=== PATIENT | female | born 1990 | race Caucasian/White ===

== ENCOUNTER 2020-03-23 18:20 | Inpatient (IN) ==
[2020-03-23] MEDS ORDERED: NS 0.9% 1000 ml BAG 2,000 ML IV ONE ×2 (18:29→20:15)
[2020-03-23 18:39] LABS: Hematocrit 43 % (35-47); Mean Corpuscular HGB Conc 32 g/dL (31-36); Mean Corpuscular Hemoglobin 31 pg (27-31); Mean Corpuscular Volume 95 fL (80-97); Mean Platelet Volume 9.2 fL (7.4-10.4); Platelet Count 418 10^3/uL (150-450); Red Blood Count 4.55 10^6 /uL (3.70-4.87); Red Cell Distribution Width 14 % (10-15); White Blood Count 30.6 10^3/uL (3.5-10.8)
[2020-03-23 19:06] LABS: ALT 23 U/L (7-52); Albumin 4.6 g/dL (3.2-5.2); Albumin/Globulin Ratio 1.3 (1-3); Alkaline Phosphatase 105 U/L (34-104); BUN/Creatinine Ratio 16.7 (8-20); Blood Urea Nitrogen 17 mg/dL (6-24); C Reactive Protein 2.55 mg/L (<8.01); Calcium 8.1 mg/dL (8.6-10.3); Chloride 99 mmol/L (101-111); EGFR African American 77.5 (>60); EGFR Non-African American 64.1 (>60); Globulin 3.6 g/dL (2-4); Sodium 125 mmol/L (135-145); Total Protein 8.2 g/dL (6.4-8.9)
[2020-03-23 19:08] LABS: CO2 Carbon Dioxide < 7 mmol/L (22-32); Glucose 596 mg/dL (70-100)
[2020-03-23 19:17] LABS: ABS Basophils 0.2 10^3/ul (0-0.2); ABS Lymphocytes 1.5 10^3/ul (1.0-4.8); ABS Neutrophils 26.9 10^3/ul (1.5-7.7); Lymphocyte % 4.8 %
[2020-03-23] MEDS ORDERED: Insulin Infusion 100unit/100mL 100 UNIT/100 ML BAG IV SCH (20:00)
[2020-03-23 20:24] LABS: Urine Appearance Clear; Urine Bilirubin Negative (Negative); Urine Blood 1+ (Negative); Urine Color Straw; Urine Glucose 3+(>=500 mg/dL) (Negative); Urine Ketones 2+ (Negative); Urine Nitrite Negative (Negative); Urine Protein 1+(30 mg/dL) (Negative); Urine Specific Gravity 1.017 (1.010-1.030); Urine Urobilinogen Negative (Negative)
[2020-03-23] MEDS ORDERED: Ondansetron 4 mg VIAL 2 MG/ML 2 ml VIAL IV PRN (20:24)
[2020-03-23 20:28] LABS: Urine Bacteria Absent (Absent); Urine Red Blood Cell Trace(0-2/hpf) (Absent); Urine Squamous Epithelial Cell Present (Absent); Urine White Blood Cell Absent (Absent)
[2020-03-23 20:28] LABS: Phosphorus 5.3 mg/dL (2.5-5.0)
[2020-03-23 20:50] LABS: LDH 257 U/L (140-271)
[2020-03-23 20:55] LABS: Magnesium 2.4 mg/dL (1.9-2.7); Potassium Redraw 4.9 mmol/L (3.5-5.0)
[2020-03-23] MEDS: Insulin Infusion 100unit/100mL 100 UNIT/100 ML BAG IV SCH (21:00)
[2020-03-23 21:10] LABS: Ferritin 58.7 ng/mL (11-307)
[2020-03-23] MEDS ORDERED: NS 0.9% 1000 ml BAG 1,000 ML IV SCH (21:45)
[2020-03-23 21:51] LABS: INR 2.61 (0.82-1.09)
[2020-03-23 21:59] LABS: Chloride 107 mmol/L (101-111); Potassium 4.9 mmol/L (3.5-5.0); Sodium 132 mmol/L (135-145)
[2020-03-23] MEDS ORDERED: D5NS 0.9% 1000 ml BAG 1,000 ML IV SCH (22:00)
[2020-03-23 22:04] LABS: BUN/Creatinine Ratio 16.3 (8-20); Blood Urea Nitrogen 15 mg/dL (6-24); CO2 Carbon Dioxide < 7 mmol/L (22-32); EGFR African American 87.3 (>60); EGFR Non-African American 72.2 (>60); Glucose 494 mg/dL (70-100)
[2020-03-23 22:30] LABS: Magnesium 2.3 mg/dL (1.9-2.7); Sodium 134 mmol/L (135-145)
[2020-03-23 22:36] LABS: BUN/Creatinine Ratio 14.4 (8-20); Blood Urea Nitrogen 13 mg/dL (6-24); EGFR African American 89.6 (>60); Glucose 413 mg/dL (70-100); Potassium 4.3 mmol/L (3.5-5.0)
[2020-03-23 22:37] LABS: CO2 Carbon Dioxide < 7 mmol/L (22-32); Calcium 6.3 mg/dL (8.6-10.3); Chloride 114 mmol/L (101-111)
[2020-03-24 01:30] LABS: Calcium 6.5 mg/dL (8.6-10.3); Magnesium 2.3 mg/dL (1.9-2.7); Potassium 3.9 mmol/L (3.5-5.0); Sodium 138 mmol/L (135-145)
[2020-03-24 01:35] LABS: BUN/Creatinine Ratio 13.1 (8-20); Blood Urea Nitrogen 11 mg/dL (6-24); EGFR Non-African American 80.2 (>60); Glucose 251 mg/dL (70-100)
[2020-03-24 01:37] LABS: Activated Partial Thrombo Time 24.8 seconds (26.0-38.0); Fibrinogen 267.5 mg/dL (110.8-404.3)
[2020-03-24 01:38] LABS: CO2 Carbon Dioxide < 7 mmol/L (22-32)
[2020-03-24] MEDS ORDERED: CALCIUM GLUCONATE 1GM/50ML NS 1 GM/50 ML BAG IV ONE (01:45)
[2020-03-24] MEDS ORDERED: KCL 20 MEQ/100 ML IVPREMIX 20 MEQ/100 ML BAG IV ONE (01:45)
[2020-03-24 01:53] LABS: Chloride 119 mmol/L (101-111)
[2020-03-24 05:11] LABS: ABS Basophils 0.1 10^3/ul (0-0.2); ABS Lymphocytes 2.2 10^3/ul (1.0-4.8); ABS Monocytes 1.2 10^3/ul (0-0.8); ABS Neutrophils 19.5 10^3/ul (1.5-7.7); Hematocrit 38 % (35-47); Hemoglobin 12.5 g/dL (12.0-16.0); Lymphocyte % 9.6 %; Mean Corpuscular HGB Conc 33 g/dL (31-36); Mean Corpuscular Hemoglobin 30 pg (27-31); Mean Corpuscular Volume 90 fL (80-97); Mean Platelet Volume 8.6 fL (7.4-10.4); Nucleated Red Blood Cells % 0.1; Platelet Count 265 10^3/uL (150-450); Red Blood Count 4.23 10^6 /uL (3.70-4.87); Red Cell Distribution Width 13 % (10-15); White Blood Count 22.9 10^3/uL (3.5-10.8)
[2020-03-24 05:26] LABS: BUN/Creatinine Ratio 11.2 (8-20); Calcium 7.1 mg/dL (8.6-10.3); EGFR African American 90.7 (>60); Magnesium 2.1 mg/dL (1.9-2.7); Potassium 3.4 mmol/L (3.5-5.0)
[2020-03-24] MEDS: KCL 20 MEQ/100 ML IVPREMIX 20 MEQ/100 ML BAG IV SCH ×2 (06:01→08:42)
[2020-03-24] MEDS: D5LR 20 MEQ KCL 1000 ml BAG 1,000 ML IV SCH ×2 (06:01→13:26)
[2020-03-24] MEDS: Insulin Infusion 100unit/100mL 100 UNIT/100 ML BAG IV SCH (06:04)
[2020-03-24] MEDS ORDERED: Phytonadione Oral Solution 5 MG/25 ML UDC PO ONE (09:00)
[2020-03-24 10:06] LABS: BUN/Creatinine Ratio 13.9 (8-20); Calcium 7.1 mg/dL (8.6-10.3); EGFR African American 104.1 (>60); Potassium 3.4 mmol/L (3.5-5.0)
[2020-03-24 12:53] LABS: Hepatitis B Surface Antigen Nonreactive (Nonreactive)
[2020-03-24 12:58] LABS: Hepatitis A Ab IgM Negative (Negative)
[2020-03-24 12:59] LABS: Hepatitis B Core IgM Nonreactive (Nonreactive)
[2020-03-24 13:11] LABS: Hepatitis C Antibody Negative (Negative)
[2020-03-24 13:57] LABS: BUN/Creatinine Ratio 13.8 (8-20); Calcium 7.7 mg/dL (8.6-10.3); EGFR African American 102.6 (>60); EGFR Non-African American 84.8 (>60); Potassium 3.3 mmol/L (3.5-5.0)
[2020-03-24] MEDS ORDERED: Potassium Chlor 20 meq TAB.ER PO ONE (14:30)
[2020-03-24] MEDS ORDERED: [UNRECOGNIZED DRUG - OTHER] IVPB SCH (15:30)
[2020-03-24] MEDS ORDERED: SODIUM BICARB IVPB SCH ×2 (15:30→20:30)
[2020-03-24] MEDS ORDERED: POTASSIUM CHLORIDE IVPB SCH ×2 (15:30→20:30)
[2020-03-24 17:34] LABS: BUN/Creatinine Ratio 14.7 (8-20); Calcium 7.6 mg/dL (8.6-10.3); EGFR African American 110.5 (>60); EGFR Non-African American 91.4 (>60); Potassium 3.8 mmol/L (3.5-5.0)
[2020-03-24] MEDS: Insulin GLARGINE 100 un/ml 10 ml VIAL SUBCUT SCH (19:20)
[2020-03-24] MEDS ORDERED: [UNRECOGNIZED DRUG - OTHER] IVPB SCH (20:30)
[2020-03-24 21:18] LABS: BUN/Creatinine Ratio 14.1 (8-20); Calcium 7.4 mg/dL (8.6-10.3); EGFR African American 105.7 (>60); EGFR Non-African American 87.3 (>60); Potassium 4.1 mmol/L (3.5-5.0)
[2020-03-24] MEDS: POTASSIUM CHLORIDE IVPB SCH (22:17)
[2020-03-24] MEDS: [UNRECOGNIZED DRUG - OTHER] IVPB SCH (22:17)
[2020-03-24] MEDS: SODIUM BICARB IVPB SCH (22:17)
[2020-03-25 04:49] LABS: INR 1.04 (0.82-1.09)
[2020-03-25 05:06] LABS: ALT 13 U/L (7-52); AST 12 U/L (13-39); Albumin 3.1 g/dL (3.2-5.2); Albumin/Globulin Ratio 1.2 (1-3); Alkaline Phosphatase 61 U/L (34-104); BUN/Creatinine Ratio 12.7 (8-20); Blood Urea Nitrogen 9 mg/dL (6-24); CO2 Carbon Dioxide 17 mmol/L (22-32); Calcium 7.8 mg/dL (8.6-10.3); EGFR African American 117.8 (>60); EGFR Non-African American 97.3 (>60); Globulin 2.5 g/dL (2-4); Glucose 145 mg/dL (70-100); Potassium 3.1 mmol/L (3.5-5.0); Sodium 138 mmol/L (135-145); Total Protein 5.6 g/dL (6.4-8.9)
[2020-03-25 05:13] LABS: Anion Gap 5 mmol/L (2-11); Chloride 116 mmol/L (101-111)
[2020-03-25] MEDS ORDERED: Potassium Chloride LIQUID 20 MEQ/15 ML LIQUID PO ONE ×2 (05:15→07:30)
[2020-03-25 05:35] LABS: ABS Basophils 0.1 10^3/ul (0-0.2); ABS Lymphocytes 2.1 10^3/ul (1.0-4.8); ABS Monocytes 0.6 10^3/ul (0-0.8); ABS Neutrophils 6.1 10^3/ul (1.5-7.7); Eosinophil % 0.4 %; Hematocrit 32 % (35-47); Hemoglobin 11.3 g/dL (12.0-16.0); Lymphocyte % 23.7 %; Mean Corpuscular HGB Conc 35 g/dL (31-36); Mean Corpuscular Hemoglobin 31 pg (27-31); Mean Corpuscular Volume 87 fL (80-97); Nucleated Red Blood Cells % 0.1; Red Blood Count 3.69 10^6 /uL (3.70-4.87); Red Cell Distribution Width 13 % (10-15); White Blood Count 8.9 10^3/uL (3.5-10.8)
[2020-03-25 06:49] LABS: Platelet Count Platelets clumped. 10^3/uL (150-450)
[2020-03-25] MEDS: POTASSIUM CHLORIDE IVPB SCH (08:24)
[2020-03-25] MEDS: [UNRECOGNIZED DRUG - OTHER] IVPB SCH (08:24)
[2020-03-25] MEDS: SODIUM BICARB IVPB SCH (08:24)
[2020-03-25 08:25] LABS: Magnesium 1.9 mg/dL (1.9-2.7)
[2020-03-25 08:46] LABS: Phosphorus < 1.0 mg/dL (2.5-5.0)
[2020-03-25] MEDS ORDERED: Potassium Phosphate IV 15 MMOLE in NS 0.9% 250 ml 250 ML IVPB ONE ×2 (09:15→17:18)
[2020-03-25 17:13] LABS: Calcium 8.3 mg/dL (8.6-10.3); EGFR African American 107.2 (>60); EGFR Non-African American 88.6 (>60); Magnesium 1.8 mg/dL (1.9-2.7); Phosphorus 1.5 mg/dL (2.5-5.0); Potassium 3.9 mmol/L (3.5-5.0)
[2020-03-25] MEDS ORDERED: Magnesium Sulfate IV 1GM/100ML 1 GM/100 ML BAG IV ONE (17:19)
[2020-03-25] MEDS: Insulin GLARGINE 100 un/ml 10 ml VIAL SUBCUT SCH (18:23)
[2020-03-26] MEDS ORDERED: Potassium Chloride LIQUID 20 MEQ/15 ML LIQUID PO ONE (07:15)
[2020-03-26] MEDS ORDERED: Potassium Chlor 20 meq TAB.ER PO ONE (08:00)
[2020-03-26] MEDS ORDERED: Magnesium Sulfate IV 1GM/100ML 1 GM/100 ML BAG IV ONE (08:00)
[2020-03-26 08:20] LABS: INR 0.96 (0.82-1.09)
[2020-03-26 08:25] LABS: ABS Lymphocytes 2.8 10^3/ul (1.0-4.8); ABS Monocytes 0.4 10^3/ul (0-0.8); ABS Neutrophils 2.5 10^3/ul (1.5-7.7); Eosinophil % 0.4 %; Hematocrit 34 % (35-47); Hemoglobin 11.8 g/dL (12.0-16.0); Lymphocyte % 49.1 %; Mean Corpuscular HGB Conc 35 g/dL (31-36); Mean Corpuscular Hemoglobin 31 pg (27-31); Mean Corpuscular Volume 87 fL (80-97); Mean Platelet Volume 9.4 fL (7.4-10.4); Nucleated Red Blood Cells % 0.1; Platelet Count 225 10^3/uL (150-450); Red Blood Count 3.87 10^6 /uL (3.70-4.87); Red Cell Distribution Width 13 % (10-15); White Blood Count 5.7 10^3/uL (3.5-10.8)
[2020-03-26 09:54] LABS: BUN/Creatinine Ratio 12.9 (8-20); Calcium 8.1 mg/dL (8.6-10.3); EGFR African American 119.7 (>60); EGFR Non-African American 98.9 (>60); Magnesium 1.9 mg/dL (1.9-2.7); Phosphorus 3.2 mg/dL (2.5-5.0); Potassium 3.1 mmol/L (3.5-5.0)
[2020-03-26] MEDS ORDERED: Dextrose 50% Syringe 50 ml 25 GM/50 ML SYRINGE IV PUSH PRN (14:22)
[2020-03-26 14:45] LABS: BUN/Creatinine Ratio 13.4 (8-20); Calcium 8.1 mg/dL (8.6-10.3); EGFR African American 125.9 (>60); EGFR Non-African American 104.1 (>60); Potassium 4.3 mmol/L (3.5-5.0)
[2020-03-26] MEDS: Insulin GLARGINE 100 un/ml 10 ml VIAL SUBCUT SCH (17:38)
[2020-03-27 06:43] VITALS: BP 110/75
[2020-03-27 06:46] LABS: ABS Lymphocytes 2.4 10^3/ul (1.0-4.8); ABS Monocytes 0.3 10^3/ul (0-0.8); ABS Neutrophils 1.5 10^3/ul (1.5-7.7); Eosinophil % 1.1 %; Hematocrit 33 % (35-47); Hemoglobin 11.7 g/dL (12.0-16.0); Lymphocyte % 55.5 %; Mean Corpuscular HGB Conc 36 g/dL (31-36); Mean Corpuscular Hemoglobin 31 pg (27-31); Mean Corpuscular Volume 86 fL (80-97); Mean Platelet Volume 8.5 fL (7.4-10.4); Nucleated Red Blood Cells % 0.1; Platelet Count 222 10^3/uL (150-450); Red Blood Count 3.82 10^6 /uL (3.70-4.87); Red Cell Distribution Width 13 % (10-15); White Blood Count 4.3 10^3/uL (3.5-10.8)
[2020-03-27 07:02] LABS: INR 0.97 (0.82-1.09)
== END 2020-03-27 12:56 | disposition home or self-care (01) | DRG 420 ==
LOC: ICU 18:20 → ED 18:20 → ICU 20:33 → MED 03-26 14:40
PROVIDERS: ADMIT Internal Medicine; ATTEND Hospitalist

== ENCOUNTER 2021-04-18 20:23 | Inpatient (IN) ==
[2021-04-18 22:24] LABS: ABS Eosinophils 0.1 10^3/ul (0-0.6); ABS Lymphocytes 0.6 10^3/ul (1.0-4.8); ABS Monocytes 0.6 10^3/ul (0-0.8); ABS Neutrophils 12.8 10^3/ul (1.5-7.7); Eosinophil % 0.7 %; Hematocrit 33 % (35-47); Hemoglobin 11.1 g/dL (12.0-16.0); Lymphocyte % 4.3 %; Mean Corpuscular HGB Conc 34 g/dL (31-36); Mean Corpuscular Hemoglobin 29 pg (27-31); Mean Corpuscular Volume 86 fL (80-97); Mean Platelet Volume 8.9 fL (7.4-10.4); Platelet Count 255 10^3/uL (150-450); Red Blood Count 3.81 10^6 /uL (3.70-4.87); Red Cell Distribution Width 13 % (10-15); White Blood Count 14.1 10^3/uL (3.5-10.8)
[2021-04-18 22:41] LABS: ALT 15 U/L (7-52); AST 11 U/L (13-39); Albumin 3.4 g/dL (3.2-5.2); Alkaline Phosphatase 103 U/L (35-149); Anion Gap 11 mmol/L (2-11); Blood Urea Nitrogen 33 mg/dL (6-24); CO2 Carbon Dioxide 22 mmol/L (22-32); Calcium 8.7 mg/dL (8.6-10.3); Chloride 99 mmol/L (101-111); EGFR African American 39.2 (>60); EGFR Non-African American 32.4 (>60); Globulin 3.5 g/dL (2-4); Glucose 161 mg/dL (70-100); Lipase < 10 U/L (11.0-82.0); Potassium 3.4 mmol/L (3.5-5.0); Sodium 132 mmol/L (135-145); Total Protein 6.9 g/dL (6.4-8.9)
[2021-04-18 22:55] LABS: Urine Appearance Turbid; Urine Bilirubin Negative (Negative); Urine Blood 2+ (Negative); Urine Color Yellow; Urine Glucose Negative (Negative); Urine Ketones Trace (Negative); Urine Nitrite Negative (Negative); Urine Protein 3+(>=500 mg/dL) (Negative); Urine Specific Gravity 1.014 (1.002-1.030); Urine Urobilinogen Negative (Negative)
[2021-04-18 22:57] LABS: HCG Pregnancy 0.97 mIU/mL
[2021-04-18 23:08] LABS: Urine Bacteria 3+ (Absent); Urine Granular Casts Present (Absent); Urine Red Blood Cell 3+(>10/hpf) (Absent); Urine Squamous Epithelial Cell Present (Absent); Urine White Blood Cell 3+(>20/hpf) (Absent)
[2021-04-18] MEDS ORDERED: Potassium Chlor 20 meq TAB.ER PO ONE (23:32)
[2021-04-19 00:06] LABS: C Reactive Protein 549.97 mg/L (<8.01)
[2021-04-19] MEDS ORDERED: Ondansetron 4 mg VIAL 2 MG/ML 2 ml VIAL IV ONE (00:07)
[2021-04-19] MEDS ORDERED: Orphenadrine Citrate INJ 30 mg/ml 2 ml VIAL (60 mg) IV ONE (01:17)
[2021-04-19] MEDS ORDERED: SUMAtriptan Subcut 6 MG/0.5 ML VIAL SUBCUT ONE (02:09)
[2021-04-19] MEDS ORDERED: NS 0.9% IV ONE (02:15)
[2021-04-19] MEDS ORDERED: Morphine 4 MG/ML VIAL (1 ml) IV ONE (05:38)
[2021-04-19] MEDS ORDERED: NS 0.9% 1000 ml BAG 1,000 ML IV ONE (07:46)
[2021-04-19] MEDS ORDERED: Ondansetron 4 mg VIAL 2 MG/ML 2 ml VIAL IV PRN (07:49)
[2021-04-19] MEDS ORDERED: Dextrose 50% Syringe 50 ml 25 GM/50 ML SYRINGE IV PUSH PRN (11:13)
[2021-04-19] MEDS: Ciprofloxacin 400mg IVPREMIX 400 MG/200 ML BAG IVPB SCH (13:14)
[2021-04-19] MEDS: NORMOSOL-R pH 7.4 1000 mL BAG 1,000 ML IV SCH ×3 (13:14→20:45)
[2021-04-19] MEDS: Acetaminophen IV 1 GM/100ML 100 ML IV PRN ×2 (14:29→19:53)
[2021-04-19] MEDS: Morphine 2 MG/ML SYRINGE IV PRN ×2 (14:29→19:29)
[2021-04-19 18:37] LABS: Calcium 7.2 mg/dL (8.6-10.3); EGFR Non-African American 40.5 (>60); Potassium 3.5 mmol/L (3.5-5.0)
[2021-04-19] MEDS ORDERED: KCL 20 MEQ/100 ML IVPREMIX 20 MEQ/100 ML BAG IV ONE (19:34)
[2021-04-19] MEDS ORDERED: NORMOSOL-R pH 7.4 1000 mL BAG 1,000 ML IV ONE (19:35)
[2021-04-19] MEDS ORDERED: Norepinephrine 16MCG/ML IVPRE 4,000 MCG/250 ML BAG IV SCH (22:00)
[2021-04-19] MEDS: Hydrocortisone INJ 100 MG/2ML 2 ML VIAL IV SCH (22:10)
[2021-04-20] MEDS: Ciprofloxacin 400mg IVPREMIX 400 MG/200 ML BAG IVPB SCH ×2 (01:03→14:11)
[2021-04-20] MEDS: NORMOSOL-R pH 7.4 1000 mL BAG 1,000 ML IV SCH ×2 (01:35→06:18)
[2021-04-20 04:53] LABS: ABS Eosinophils 0.3 10^3/ul (0-0.6); ABS Lymphocytes 0.4 10^3/ul (1.0-4.8); ABS Monocytes 0.3 10^3/ul (0-0.8); ABS Neutrophils 9.6 10^3/ul (1.5-7.7); Eosinophil % 2.6 %; Hematocrit 22 % (35-47); Hemoglobin 7.3 g/dL (12.0-16.0); Lymphocyte % 3.4 %; Mean Corpuscular HGB Conc 33 g/dL (31-36); Mean Corpuscular Hemoglobin 29 pg (27-31); Mean Corpuscular Volume 87 fL (80-97); Mean Platelet Volume 8.6 fL (7.4-10.4); Platelet Count 160 10^3/uL (150-450); Red Blood Count 2.49 10^6 /uL (3.70-4.87); Red Cell Distribution Width 14 % (10-15); White Blood Count 10.5 10^3/uL (3.5-10.8)
[2021-04-20 05:11] LABS: EGFR Non-African American 78.5 (>60); Potassium 4.1 mmol/L (3.5-5.0)
[2021-04-20] MEDS: Hydrocortisone INJ 100 MG/2ML 2 ML VIAL IV SCH ×3 (05:37→21:20)
[2021-04-20 05:44] LABS: Calcium 4.7 mg/dL (8.6-10.3)
[2021-04-20 06:11] LABS: ABS Eosinophils 0.3 10^3/ul (0-0.6); ABS Lymphocytes 0.6 10^3/ul (1.0-4.8); ABS Monocytes 0.4 10^3/ul (0-0.8); ABS Neutrophils 12.6 10^3/ul (1.5-7.7); Hematocrit 29 % (35-47); Hemoglobin 9.5 g/dL (12.0-16.0); Mean Corpuscular HGB Conc 33 g/dL (31-36); Mean Corpuscular Hemoglobin 28 pg (27-31); Mean Corpuscular Volume 87 fL (80-97); Mean Platelet Volume 8.6 fL (7.4-10.4); Platelet Count 218 10^3/uL (150-450); Red Blood Count 3.33 10^6 /uL (3.70-4.87); Red Cell Distribution Width 14 % (10-15); White Blood Count 13.9 10^3/uL (3.5-10.8)
[2021-04-20 06:22] LABS: EGFR African American 58.2 (>60); EGFR Non-African American 48.1 (>60); Magnesium 2.6 mg/dL (1.9-2.7); Phosphorus 2.5 mg/dL (2.5-5.0); Potassium 3.9 mmol/L (3.5-5.0)
[2021-04-20] MEDS ORDERED: Potassium Chlor 20 meq TAB.ER PO ONE (06:29)
[2021-04-20] MEDS: Insulin LISPRO* FOR INSULIN PUMP SUBCUT SCH ×4 (08:57→17:54)
[2021-04-20] MEDS ORDERED: NORMOSOL-R pH 7.4 1000 mL BAG 1,000 ML IV SCH ×2 (09:39→20:59)
[2021-04-20] MEDS ORDERED: Insulin GLARGINE 100 un/ml 10 ml VIAL SUBCUT SCH (21:00)
[2021-04-21] MEDS: Ciprofloxacin 400mg IVPREMIX 400 MG/200 ML BAG IVPB SCH ×2 (02:55→13:19)
[2021-04-21] MEDS: Hydrocortisone INJ 100 MG/2ML 2 ML VIAL IV SCH ×2 (05:55→13:19)
[2021-04-21 06:11] LABS: Hematocrit 31 % (35-47); Hemoglobin 10.4 g/dL (12.0-16.0); Mean Corpuscular HGB Conc 34 g/dL (31-36); Mean Corpuscular Hemoglobin 29 pg (27-31); Mean Corpuscular Volume 86 fL (80-97); Platelet Count 231 10^3/uL (150-450); Red Blood Count 3.57 10^6 /uL (3.70-4.87); Red Cell Distribution Width 15 % (10-15)
[2021-04-21 06:18] LABS: INR 1.23 (0.86-1.15)
[2021-04-21 06:49] LABS: Calcium 7.4 mg/dL (8.6-10.3); EGFR African American 93.7 (>60); EGFR Non-African American 77.5 (>60); Magnesium 2.6 mg/dL (1.9-2.7); Phosphorus 1.7 mg/dL (2.5-5.0); Potassium 3.9 mmol/L (3.5-5.0)
[2021-04-21] MEDS: Insulin LISPRO* FOR INSULIN PUMP SUBCUT SCH ×2 (08:51→12:19)
[2021-04-21 11:25] VITALS: BP 107/63
[2021-04-21] MEDS ORDERED: Potassium & Sodium Phos 250 mg = 1 PACKET PO ONE (12:07)
== END 2021-04-21 16:50 | disposition home or self-care (01) | DRG 720 ==
LOC: ED 20:23 → ICU 04-19 07:46 → MEDTELE 04-21 02:51
PROVIDERS: ADMIT Hospitalist; ATTEND Internal Medicine